=== PATIENT | male | born 1980 | race Caucasian/White ===

== ENCOUNTER 2020-06-15 10:53 | Inpatient (IN) | payer SELFPAY ==
[~2020-06-15] VITALS: Ht 162.6 cm; Wt 105.3 kg
[2020-06-15 11:00] VITALS: Ht 162.6 cm; Wt 105.3 kg
[2020-06-15 12:46] LABS: BASOPHIL % 0.7 % (0-2); PLATELET COUNT 212 x10^3mcL (130-400); RED CELL DISTRIBUTION WIDTH 13.5 % (11.5-14.5)
[2020-06-15 12:49] LABS: CALCIUM 8.8 mg/dL (8.5-10.1); CARBON DIOXIDE 29.5 mmol/L (21-32); CHLORIDE SERUM 102 mmol/L (98-107); CREATININE SERUM 1.1 mg/dL (0.7-1.3); GFR1 > 60 mL/min; GLUCOSE SERUM 141 mg/dL (74-106); POTASSIUM SERUM 3.6 mmol/L (3.5-5.1); SODIUM SERUM 136 mmol/L (136-145)
[2020-06-15 13:01] LABS: ALKALINE PHOSPHATASE 142 U/L (46-116); ALT/SGPT 111 U/L (16-63); AST/SGOT 131 U/L (15-37); CHOLESTEROL 163 mg/dL (<200); LIPASE 231 IU/L (73-393); T4(THYROXINE) 9.7 ug/dL (4.7-13.3); TOTAL PROTEIN, SERUM 7.7 g/dL (6.4-8.2)
[2020-06-15 13:05] LABS: ALBUMIN 2.5 g/dL (3.4-5.0); HDL CHOLESTEROL 20 mg/dL (40-60)
[2020-06-15 14:36] LABS: microscopic required? YES; urine erythrocyte 1+ (NEGATIVE)
[2020-06-15 14:42] LABS: T3 TOTAL 1.46 ng/mL
[2020-06-15 14:46] LABS: BILIRUBIN TOTAL 0.57 mg/dL (0.20-1.00)
[2020-06-15 15:19] VITALS: BP 132/72
[2020-06-15 15:30] LABS: AMPHETAMINE QUAL UR POSITIVE (See below)
[2020-06-15 17:00] LABS: FREE T4 1.16 ng/dL (0.76-1.46); FREE THYROXINE INDEX 2.8 ug/dL (1.4-4.5); T4(THYROXINE) 9.7 ug/dL (4.7-13.3)
[2020-06-15 21:00] VITALS: BP 107/82
[2020-06-16 06:32] VITALS: BP 122/88
[2020-06-16 08:22] LABS: BASOPHIL % 0.4 % (0-2); PLATELET COUNT 223 x10^3mcL (130-400); RED CELL DISTRIBUTION WIDTH 13.5 % (11.5-14.5)
[2020-06-16 08:28] VITALS: BP 130/88
[2020-06-16 08:41] LABS: CALCIUM 8.7 mg/dL (8.5-10.1); CARBON DIOXIDE 31.1 mmol/L (21-32); CHLORIDE SERUM 102 mmol/L (98-107); CREATININE SERUM 1.2 mg/dL (0.7-1.3); GFR1 > 60 mL/min; GLUCOSE SERUM 117 mg/dL (74-106); MAGNESIUM 1.9 mg/dL (1.8-2.4); PHOSPHOROUS 3.8 mg/dL (2.5-4.9); POTASSIUM SERUM 3.7 mmol/L (3.5-5.1); SODIUM SERUM 137 mmol/L (136-145)
[2020-06-16 11:59] VITALS: BP 147/107
[2020-06-16 16:15] LABS: BASOPHIL % 0.5 % (0-2); PLATELET COUNT 224 x10^3mcL (130-400); RED CELL DISTRIBUTION WIDTH 13.7 % (11.5-14.5)
[2020-06-16 16:27] LABS: CALCIUM 8.6 mg/dL (8.5-10.1); CARBON DIOXIDE 30.7 mmol/L (21-32); CHLORIDE SERUM 101 mmol/L (98-107); CREATININE SERUM 1.2 mg/dL (0.7-1.3); GFR1 > 60 mL/min; GLUCOSE SERUM 111 mg/dL (74-106); SODIUM SERUM 137 mmol/L (136-145)
[2020-06-16 17:07] VITALS: BP 110/58
[2020-06-16 20:58] VITALS: BP 106/73
[2020-06-17 05:36] VITALS: BP 137/80
[2020-06-17 06:58] LABS: BASOPHIL % 0.3 % (0-2); PLATELET COUNT 228 x10^3mcL (130-400); RED CELL DISTRIBUTION WIDTH 13.5 % (11.5-14.5)
[2020-06-17 07:19] LABS: CARBON DIOXIDE 30.1 mmol/L (21-32); CHLORIDE SERUM 102 mmol/L (98-107); CREATININE SERUM 1.1 mg/dL (0.7-1.3); GFR1 > 60 mL/min; GLUCOSE SERUM 105 mg/dL (74-106); MAGNESIUM 2.2 mg/dL (1.8-2.4); PHOSPHOROUS 3.5 mg/dL (2.5-4.9); POTASSIUM SERUM 4.6 mmol/L (3.5-5.1); SODIUM SERUM 138 mmol/L (136-145)
[2020-06-17 11:57] VITALS: BP 118/80
[2020-06-17 16:23] VITALS: BP 106/69
[2020-06-18 05:41] VITALS: BP 119/83
[2020-06-18 06:37] LABS: PLATELET COUNT 251 x10^3mcL (130-400); RED CELL DISTRIBUTION WIDTH 13.6 % (11.5-14.5)
[2020-06-18 06:47] LABS: CALCIUM 9.2 mg/dL (8.5-10.1); CARBON DIOXIDE 29.4 mmol/L (21-32); CREATININE SERUM 1.5 mg/dL (0.7-1.3); MAGNESIUM 2.2 mg/dL (1.8-2.4); PHOSPHOROUS 3.7 mg/dL (2.5-4.9); POTASSIUM SERUM 3.9 mmol/L (3.5-5.1)
[2020-06-18 07:08] LABS: BASOPHIL % 0 % (0-2)
[2020-06-18 07:53] VITALS: BP 135/87
[2020-06-18 16:20] VITALS: BP 123/69
[2020-06-19 05:50] VITALS: BP 138/86
[2020-06-19 08:17] VITALS: BP 111/71
[2020-06-19 09:31] LABS: BASOPHIL % 0.5 % (0-2); PLATELET COUNT 287 x10^3mcL (130-400); RED CELL DISTRIBUTION WIDTH 13.2 % (11.5-14.5)
[2020-06-19 11:13] LABS: CALCIUM 8.2 mg/dL (8.5-10.1); CREATININE SERUM 1.7 mg/dL (0.7-1.3); POTASSIUM SERUM 3.5 mmol/L (3.5-5.1)
[2020-06-19 17:24] VITALS: BP 109/71
[2020-06-19 21:04] VITALS: BP 106/56
[2020-06-20 06:05] VITALS: BP 139/87
[2020-06-20 06:58] LABS: BASOPHIL % 0.9 % (0-2); PLATELET COUNT 247 x10^3mcL (130-400); RED CELL DISTRIBUTION WIDTH 13.5 % (11.5-14.5)
[2020-06-20 07:09] LABS: CALCIUM 8.5 mg/dL (8.5-10.1); CARBON DIOXIDE 25.5 mmol/L (21-32); CREATININE SERUM 1.4 mg/dL (0.7-1.3); POTASSIUM SERUM 3.6 mmol/L (3.5-5.1)
[2020-06-20 08:26] VITALS: BP 138/103
[2020-06-20] MEDS ORDERED: ZES5 PO (09:16)
[2020-06-20] MEDS ORDERED: FLO4 PO (09:16)
[2020-06-20] MEDS ORDERED: GLUCOPHAGE500 MG PO (09:23)
[2020-06-20] MEDS ORDERED: ACCU-CHEK1 EAC2 MC (10:43)
[2020-06-20 10:48] VITALS: BP 118/88; BP 138/103
== END 2020-06-20 11:20 | disposition home or self-care (01) | DRG 659 ==
LOC: ED 10:53 → DU 13:46 → MU 06-18 16:47
PROVIDERS: Emergency Medicine; Urology; ADMIT Family Medicine; ATTEND Family Medicine
PROC: BT141ZZ Fluoroscopy of Kidneys, Ureters and Bladder using Low Osmolar Contrast (ICD-10-PCS; 2020-06-17)
PROC: 0T788DZ Dilation of Bilateral Ureters with Intraluminal Device, Via Natural or Artificial Opening Endoscopic (ICD-10-PCS; principal; 2020-06-17 16:30)
DX: N13.6 Pyonephrosis (principal); K72.00 Acute and subacute hepatic failure without coma; I67.4 Hypertensive encephalopathy; F15.20 Other stimulant dependence, uncomplicated; Z68.41 Body mass index [BMI] 40.0-44.9, adult; E44.1 Mild protein-calorie malnutrition; I10 Essential (primary) hypertension; E88.09 Other disorders of plasma-protein metabolism, not elsewhere classified; Z20.828 Contact with and (suspected) exposure to other viral communicable diseases; E66.9 Obesity, unspecified; F17.210 Nicotine dependence, cigarettes, uncomplicated; E11.9 Type 2 diabetes mellitus without complications; K75.81 Nonalcoholic steatohepatitis (NASH); Z56.0 Unemployment, unspecified; Z79.899 Other long term (current) drug therapy
CPT/HCPCS: 82962; 83880; 84439; 85378; G0378; G0480; J0696; J1940; J2405; J2704; J3010; J7030; Q0092; Q9958; Q9967

== ENCOUNTER 2020-08-31 05:42 | Inpatient (IN) | payer OTHER ==
[~2020-08-31] VITALS: Ht 162.6 cm; Wt 77.1 kg
[~2020-08-31 05:42] MED LIST: ACCU-CHEK1 EAC2 MC; FLO4 PO; GLUCOPHAGE500 MG PO; ZES5 PO
[2020-08-31 05:48] VITALS: Ht 162.6 cm; Wt 77.1 kg
--- NOTE | 2020-08-31 05:58 | NUR ---
PT BIB [facility] C/O LLQ PAIN X 1 DAY. MEDIC REPORTS PICKING PT UP FROM HOME DUE TO PT C/O LLQ ABDOMINAL PAIN RADIATING TO THE LEFT FLANK. PT REPORTS "THE PAIN STARTED YESTERDAY". MEDIC STATES PT HAS CONFIRMED KIDNEY STONES TO BILATERAL KIDNEYS AND HEMATURIA. PT REPORTS URINATING "BRIGHT RED" BLOOD. PER PT "I HAD TWO STENTS PLACED TO HELP PASS THE STONES". PT REPORTS HE IS SCHEDULED FOR [place] [facility] [place] PT STATES "THEY WERE GOING TO USE A CAMERA TO LOOK AT THE STONES". PT REPORTS HX OF KIDNEY STONES AND TYPE 2 DIABETES. BLOOD SUGAR AT BEDSIDE 89. PT STATES PAIN 10/10 AT THIS TIME, AAOX4, RESP E/U, NO DISTRESS NOTED. PT GOWNED AND PLACED ON FULL CM, NSR NOTED. AWAITING MSE BY
--- NOTE | 2020-08-31 06:05 | NUR ---
DR FLOYD AT THE BEDSIDE FOR MSE
[2020-08-31 06:21] LABS: BASOPHIL % 0.3 % (0-2); PLATELET COUNT 230 x10^3mcL (130-400); RED CELL DISTRIBUTION WIDTH 12.7 % (11.5-14.5)
--- NOTE | 2020-08-31 06:28 | NUR ---
PT AMBULATED WITH STEADY GAIT TO RESTROOM AND BACK TO OBTAIN URINE SAMPLE
[2020-08-31 06:30] LABS: CALCIUM 8.5 mg/dL (8.5-10.1); CARBON DIOXIDE 23.5 mmol/L (21-32); CREATININE SERUM 1.6 mg/dL (0.7-1.3); POTASSIUM SERUM 3.7 mmol/L (3.5-5.1)
[2020-08-31 06:35] LABS: BILIRUBIN TOTAL 0.4 mg/dL (0.20-1.00); TOTAL PROTEIN, SERUM 7.7 g/dL (6.4-8.2)
--- NOTE | 2020-08-31 06:36 | NUR ---
PT TAKEN OFF ER FLOOR TO CT VIA ER JANNY
--- NOTE | 2020-08-31 07:14 | NUR ---
REPORT GIVEN TO LAZARA ROSEN. HE WILL ASSUME FURTHER CARE OF THIS PT
--- NOTE | 2020-08-31 07:30 | NUR ---
AWAKE ALERT, STATED MILD ABDOMINAL PAIN, LEFT SIDE ABDOMEN SOFT TENDER LT LOWER QUAD,SKIN WARM AND DRY TOTOUCH, RESP. EASY BREATH SOUNDS CLEAR, IV THERAPY NSS IN PROGRESS,
--- NOTE | 2020-08-31 08:10 | NUR ---
C/O MORE PAIN LT LOWER QUAD ABDOMEN, MEDICATED WITH MS AND ANTIBIOTIC STARTED,
[2020-08-31 08:45] LABS: microscopic required? YES; urine erythrocyte 3+ (NEGATIVE)
--- NOTE | 2020-08-31 10:06 | NUR ---
SLEEPING EASIL AWAKABLE,NO ABDOMINAL PAIN AT THIS TIME
--- NOTE | 2020-08-31 11:59 | NUR ---
RESTING IN BED ,FEELS BETTER, ADMITTED TO M/S,VOIDED FREELY
--- NOTE | 2020-08-31 13:35 | NUR ---
PT IN BED RESTING, EASY TO AROUSE. PT RESP E/U, NAD NOTED, CALL LIGHT IN REACH
--- NOTE | 2020-08-31 15:03 | NUR ---
PT IN BED RESTING, EASY TO AROUSE. PT PENDING TRANSPORT TO ADMIT. PT NAD NOTED, RESP E/U, AAOX4, CALL LIGHT IN REACH
[2020-08-31 16:45] VITALS: BP 138/97
--- NOTE | 2020-08-31 19:17 | NUR ---
PATIENT RECEIVED FROM ER VIA WHEELCHAIR. PAIN 8/10 TO LLQ. PAIN MEDICATION GIVEN ORDERED. PATIENT IS AAO X4. ABLE TO MAKE NEEDS KNOWN. ADMISSION DATABASE COMPLETED. 22 GAUGE IV TO RAC, PATENT AND INTACT WITH NA @ 100ML FROM ER ORDERED X1. BED IN LOWEST POSITION. PATIENT AMBULATED TO BATHROOM WITH STEADY GAIT. DENIES CHEST PAIN. ON ROOM AIT. NO SIGN OF RESPIRATORY DISTRESS NOTED. PATIENT HAS MULTIPLE TATTOOS AAL OVER BODY. SKIN INTACT AND CLEAR. PATIENT STATED LAST BM 08/30/2020. WILL CONTINUE TO MONTIOR PATIENT.
[2020-08-31 20:46] VITALS: BP 151/94
[2020-08-31 21:09] LABS: AMPHETAMINE QUAL UR POSITIVE (See below)
--- NOTE | 2020-09-01 00:47 | NUR ---
PT RECEIVED LYING IN BED SUPINE TALKING ON THE PHONE. A/OX4, CALM AND COOPERATIVE. RESPIRATIONS EVEN UNLABORED, CTA, RA, DENIES SOB. DENIES CHEST PAIN, LIGHTHEADEDNESS/DIZZINESS. PERIPHERAL PULSES PALPABLE, NO EDEMA NOTED. AND SOFT AND ROUND, NON TENDER, DENIES N/V, LBM 08/30, NORMAL. HEMATURIA. AMBUALTORY WITH STEADY GAIT. SKIN INTACT. IV RAC 22G RUNNING NS@100ML/HR, PATENT, NO OMPLICATIONS TO SITE. BED IN LOWEST POSITION, SIDE RAILS X2, CALL LIGHT WITHIN REACH
--- NOTE | 2020-09-01 01:18 | NUR ---
PT AWAKE AND EXPERIENCING PAIN TO RUQ - 7/10. PT NOTED TO BE GRIMACING AND GUARDING. NORCO 5-325MG ADMINISTRED ORDERED. IV TO RAC INFILTRATED, D/C AND RESTARTED TO LAC 20G, NS RUNNING @80ML/HR, NO COMPLICATIONS TO SITE. ALL NEEDS MET AT THIS TIME. BED IN LOWEST POSITION, SIDE RAILS X 2, CALL LIGHT WITHIN REACH
[2020-09-01 05:59] VITALS: BP 136/86
[2020-09-01 07:14] LABS: BASOPHIL % 0.5 % (0-2); PLATELET COUNT 218 x10^3mcL (130-400); RED CELL DISTRIBUTION WIDTH 12.6 % (11.5-14.5)
[2020-09-01 07:31] LABS: BILIRUBIN TOTAL 0.5 mg/dL (0.20-1.00); CALCIUM 8.5 mg/dL (8.5-10.1); CARBON DIOXIDE 23.2 mmol/L (21-32); CREATININE SERUM 1.5 mg/dL (0.7-1.3); MAGNESIUM 2.1 mg/dL (1.8-2.4); PHOSPHOROUS 2.8 mg/dL (2.5-4.9); TOTAL PROTEIN, SERUM 7.3 g/dL (6.4-8.2)
[2020-09-01 07:32] LABS: ALBUMIN 2.7 g/dL (3.4-5.0); CHOLESTEROL/HDL RATIO 5.1
[2020-09-01 08:05] VITALS: BP 158/101
[2020-09-01 11:21] VITALS: BP 145/95
--- NOTE | 2020-09-01 16:06 | NUR ---
PATIENT OFF UNIT FOR SURGERY VIA [facility]. TAKEN BY OR STAFF. WILL CONTINUE TO MONITOR.
[2020-09-01 21:53] VITALS: BP 128/82
--- NOTE | 2020-09-01 22:13 | NUR ---
PT RECEIVED FROM OR. PT DROWSY BUT EASILY AROUSABLE TO VERBAL AND TACTILE STIMULI. A/OX4, CALM AND COOPERATIVE. RESPIRATIONS EVEN UNLABORED, DIMINISHED, 2L NC, DENIES SOB. DENIES LIGHTHEADEDNESS/DIZZINESS. BS ACTIVE, ABD SOFT AND ROUND, NON TENDER, LBM 08/30. RODRIGUEZ PATENT, NO COMPLICATIONS TO SITE, HEMATURIA. STRING EXITING FROM TIP OF PENIS INTACT. PT AMBULATORY WITH STEADY GAIT. SKIN INTACT. PT DENIES PAIN AT THIS TIME. IV R UPPER ARM, PATENT, RUNNING NS@80ML/HR, NO COMPLICATIONS TO SITE. BED IN LOWEST POSITION, SIDE RAILS X 2, CALL LGIHT WITHIN REACH
--- NOTE | 2020-09-02 00:15 | NUR ---
PT SLEEPING IN SUPINE POSITION WITH HOB ELEVATED 30. NO REPSIRATORY DISTRESS NOTED. NON VERBAL PAIN INDICATORS ABSENT. RODRIGUEZ PATENT AND DRAINING TO GRAVITY, HEMATURIA. IV TO R UPPER ARM, PATENT, RUNNING NS@80ML/HR, NO COMPLICATIONS TO SITE. BED IN LOWEST POSITION, SIDE RAILS X 2, CALL LIGHT WITHIN REACH
[2020-09-02 06:02] VITALS: BP 134/86
--- NOTE | 2020-09-02 06:20 | NUR ---
RODRIGUEZ CATHETER 16FR REMOVED AT 06:00, 10ML FLUID REMOVED FROM BUBBLE. CATHETER EASILY REMOVED WITH NO RESISTANCE. PT TOLERATED WELL. STRING REAMINS INTACT. PT EDUCATED TO BE CAUTIOUS WHEN USING RESTROOM TO NOT PULL STRING BACK OR OUT. PT ALSO EDUCATED TO INFORM RN SHOULD HE HAD DIFFICULTY URINATING, FEELS DISTENDED OR STRING DISLODGES. PT VERBALIZED UNDERSTANDING. URINAL PROVIDED AT BEDSIDE.
--- NOTE | 2020-09-02 06:23 | NUR ---
PT REMAINS A/OX4 AND ON 2L NC POST OP. PT DENIES DIFFICULTY BREATHING OR SOB BUT REMAINS DROWSY. NO BM DURING SHIFT. RODRIGUEZ D/C AT 06:00. PT CONTINUES TO HAVE HEMATURIA. PT DENIES PAIN. IV R UPPER ARM PATENT, RUNNINGN NS@80ML/HR. BED IN LOWEST POSITION, SIDE RAILS X 2, CALL LIGHT WITHIN REACH
[2020-09-02 07:43] LABS: BASOPHIL % 0.2 % (0-2); PLATELET COUNT 243 x10^3mcL (130-400); RED CELL DISTRIBUTION WIDTH 13.1 % (11.5-14.5)
[2020-09-02 08:01] LABS: BILIRUBIN TOTAL 0.5 mg/dL (0.20-1.00); CALCIUM 8.4 mg/dL (8.5-10.1); CARBON DIOXIDE 25.1 mmol/L (21-32); CREATININE SERUM 1.6 mg/dL (0.7-1.3); MAGNESIUM 1.9 mg/dL (1.8-2.4); PHOSPHOROUS 3.8 mg/dL (2.5-4.9); TOTAL PROTEIN, SERUM 7.8 g/dL (6.4-8.2)
[2020-09-02 08:03] LABS: ALBUMIN 2.8 g/dL (3.4-5.0)
[2020-09-02 08:33] VITALS: BP 106/68
[2020-09-02 13:54] VITALS: BP 117/73
[2020-09-02] MEDS ORDERED: ACETAMINOPHEN-H1 TA1 PO (14:43)
[2020-09-02] MEDS ORDERED: TAMSULOSIN HCL0.4 MG PO (14:44)
--- NOTE | 2020-09-02 14:45 | NUR ---
LATE ENTRY- 0800 AM NOTES PATIENT ASLEEP IN BED. VS STABLE , PATIENT WOKE UP TO TAKE MORNING MEDS. NO COMPLAINTS OF PAIN OR DISCOMFORT AT THIS TIME.
--- NOTE | 2020-09-02 14:48 | NUR ---
LATE ENTRY- 1200 NOTES PATIENT VITALS STABLE. NO PAIN STATED OR NOTED AT THIS TIME. PATIENT BG 135- NO INSULIN NEEDED. PATIENT HAS JUST BEEN RESTING. NO COMPLAINTS.
[2020-09-02 14:55] VITALS: BP 117/73
--- NOTE | 2020-09-02 15:47 | NUR ---
PT READY FOR DC. DC PAPER COMPLETED. PATIENT IN STABLE CONDITION, NO PAIN UPON DISCHARGE.
== END 2020-09-02 16:02 | disposition home or self-care (01) | DRG 446 ==
LOC: ED 05:42 → DU 09:08 → MU 09:08 → DU 15:18 → MU 15:19
PROVIDERS: Emergency Medicine; Urology; ADMIT Hospitalist; ATTEND Hospitalist
PROC: 0TC68ZZ Extirpation of Matter from Right Ureter, Via Natural or Artificial Opening Endoscopic (ICD-10-PCS; 2020-09-01)
PROC: 0TC78ZZ Extirpation of Matter from Left Ureter, Via Natural or Artificial Opening Endoscopic (ICD-10-PCS; 2020-09-01)
PROC: BT141ZZ Fluoroscopy of Kidneys, Ureters and Bladder using Low Osmolar Contrast (ICD-10-PCS; principal; 2020-09-01 16:30)
DX: N13.6 Pyonephrosis (principal); N17.9 Acute kidney failure, unspecified; E11.22 Type 2 diabetes mellitus with diabetic chronic kidney disease; N18.30 Chronic kidney disease, stage 3 unspecified; I12.9 Hypertensive chronic kidney disease with stage 1 through stage 4 chronic kidney disease, or unspecified chronic kidney disease; E66.9 Obesity, unspecified; Z20.828 Contact with and (suspected) exposure to other viral communicable diseases; Z95.818 Presence of other cardiac implants and grafts; Z68.29 Body mass index [BMI] 29.0-29.9, adult
CPT/HCPCS: 82962; C1758; C1769; G0378; J0696; J1644; J1885; J2175; J2270; J2405; J3010; J7030; J7060; Q9967

== ENCOUNTER 2020-09-16 11:36 | Day surgery (SDC) | payer OTHER, SELFPAY ==
[2020-09-11 12:22] LABS: BASOPHIL % 1.3 % (0.2-1.5); PLATELET COUNT 305 x10^3mcL (152-348); RED CELL DISTRIBUTION WIDTH 12.7 % (12.1-16.2)
[2020-09-11 12:44] LABS: rbc morphology (normal/abnorm) NORMAL (NORMAL)
[2020-09-11 12:51] LABS: CALCIUM 8.5 mg/dL (8.5-10.1); CARBON DIOXIDE 25.5 mmol/L (21-32); CHLORIDE SERUM 103 mmol/L (98-107); CREATININE SERUM 1.3 mg/dL (0.7-1.3); GFR1 > 60 mL/min; GLUCOSE SERUM 102 mg/dL (74-106); POTASSIUM SERUM 3.9 mmol/L (3.5-5.1); SODIUM SERUM 138 mmol/L (136-145)
[2020-09-11 12:55] LABS: ALKALINE PHOSPHATASE 103 U/L (46-116); ALT/SGPT 189 U/L (16-63); AST/SGOT 194 U/L (15-37); BILIRUBIN TOTAL 0.4 mg/dL (0.20-1.00)
[2020-09-11 13:05] LABS: ALBUMIN 3.1 g/dL (3.4-5.0); TOTAL PROTEIN, SERUM 8.5 g/dL (6.4-8.2)
--- NOTE | 2020-09-11 14:57 | NUR ---
COPY OF ABNORMAL CMP AND CBC GIVEN TO ANESTHESIA FOR REVIEW.
--- NOTE | 2020-09-11 15:00 | NUR ---
FAXED COPY OF ABNORMAL CBC AND CMP TO DR SUNG OFFICE.
[~2020-09-16] VITALS: Ht 165.1 cm; Wt 99.8 kg
[~2020-09-16 11:36] MED LIST changes: +ACETAMINOPHEN-H1 TA1 PO; +TAMSULOSIN HCL0.4 MG PO
[2020-09-16 12:14] VITALS: BP 128/93
[2020-09-16 18:00] VITALS: BP 126/92
== END 2020-09-16 19:05 | disposition home or self-care (01) ==
LOC: DS 11:36 → OR 14:00 → DS 19:05
PROVIDERS: ATTEND Urology
DX: N13.2 Hydronephrosis with renal and ureteral calculous obstruction (principal); I10 Essential (primary) hypertension; E11.9 Type 2 diabetes mellitus without complications; E66.3 Overweight; Z68.36 Body mass index [BMI] 36.0-36.9, adult; Z79.899 Other long term (current) drug therapy; Z79.84 Long term (current) use of oral hypoglycemic drugs
CPT/HCPCS: 82962; C1769; C2625; J0696; J2001; J2175; J2405; J3010; Q9958; Q9967